=== PATIENT | male | born 1990 | race Caucasian/White ===

== ENCOUNTER 2021-08-01 03:12 | Emergency (ER) | payer MEDICAID ==
[~2021-08-01] VITALS: Ht 177.8 cm; Wt 72.6 kg
[2021-08-01] MEDS ORDERED: lamoTRIgine 100 MG TAB PO ONE (03:45)
[2021-08-01] MEDS ORDERED: levETIRAcetam 500 MG/5ML INJ IV ONE (04:01)
[2021-08-01 04:15] VITALS: BP 101/62
== END 2021-08-01 04:57 | disposition home or self-care (01) ==
LOC: ER 03:12
DX: R56.9 Unspecified convulsions (principal); G80.9 Cerebral palsy, unspecified
CPT/HCPCS: 96374; 99283; J1953; J7060